=== PATIENT | female | born 1970 | race Caucasian/White ===

== ENCOUNTER 2017-01-14 21:37 | Emergency (ER) | payer OTHER ==
[~2017-01-14] VITALS: Ht 157.5 cm; Wt 72.9 kg
[~2017-01-14 21:37] MED LIST: AUGMENTIN875 MG PO; CLEOCIN150 MG PO; COMPAZINE10 MG PO; CYCLOBENZAPRINE5 MG PO; DEXAMETHASONE4 MG PO; FIORICET 50-301 EACH PO; FIORICET,ESG1 TABLET PO; FLEXERIL10 MG PO; HYDROXYZINE PAM25 MG PO; MEDROL DOSEPAK4 MG PO; MOTRIN IB200 MG PO; MOTRIN800 MG PO; NICOTINE PATCH1 EAC1 TD; NOHOMEMEDS; PREDNISONE10 MG PO; PREDNISONE50 MG PO; PRILOSEC40 MG PO; PROMETHAZINE HC25 M1 PO; PROVENTIL HFA6.7 GM IH; SEROQUEL400 MG PO; TORADOL10 MG PO; TYLENOL REGULA325 MG PO; TYLENOL WITH C1 EACH PO; ZANTAC150 MG PO; ZITHROMAX Z-PA250 MG PO
[2017-01-15 00:09] VITALS: BP 128/82
== END 2017-01-15 01:23 | disposition left against medical advice (07) ==
LOC: EXP 21:37 → EME 21:37 → EXP 01-15 01:23
DX: M25.511 Pain in right shoulder (principal); M54.2 Cervicalgia; F17.200 Nicotine dependence, unspecified, uncomplicated; Z53.20 Procedure and treatment not carried out because of patient's decision for unspecified reasons
CPT/HCPCS: 80053; 83690; 84484; 85027; 99281; 99283; J3010